=== PATIENT | male | born 1950 | race Caucasian/White ===

== ENCOUNTER 2018-02-23 07:16 | Day surgery (SDC) | payer BC ==
[2018-02-23] MEDS ORDERED: Lactated Ringers 1,000 ML IV SCH (07:30)
[2018-02-23] MEDS ORDERED: Propofol 200 MG/20 ML SDV IV ONE (09:15)
[2018-02-23] MEDS ORDERED: Midazolam 1 MG/ML 2 ML SDV IV ONE (09:15)
--- NOTE | 2018-02-23 09:45 | PCM.OPNOTE ---
- General Post-Op/Procedure Note Date of Surgery/Procedure: 02/23/18 Operative Procedure(s): c scope with bx Findings: diverticulosis descending colon polyp Pre Op Diagnosis: hx of polyp Post-Op Diagnosis: descending colon polyp. diverticulosis Anesthesia Technique: JERRICA Primary Surgeon: Aurelio Ramos Anesthesia Provider: Keke Hoffman Pathology: colon polyp Complications: None Condition: Good Free Text/Narrative:: see dictation
--- NOTE | 2018-02-23 10:23 | OR ---
DATE OF OPERATION: 02/23/2018 SURGEON: Aurelio Ramos MD PROCEDURES PERFORMED: Colonoscopy with cold forceps biopsy. PREOPERATIVE DIAGNOSIS: Personal history of colon polyps. POSTOPERATIVE DIAGNOSES: Descending colon polyp and diverticulosis of the descending and sigmoid colons. INDICATIONS FOR PROCEDURE: This is a 67-year-old white male who presents for a followup colonoscopy. He was offered and accepted same. DESCRIPTION OF OPERATION: After an excellent IV sedation was administered, digital rectal exam was performed. No marked abnormality was noted. Flexible colonoscope was inserted and advanced to the cecum without difficulty. The prep was excellent. The following findings were noted. Ascending colon, unremarkable. Transverse colon, unremarkable. Descending colon, scattered diverticula and a small polyp, biopsied with cold biopsy forceps and sent for permanent. Sigmoid, mild diverticulosis. Rectum and anus, unremarkable. Colon was deflated. Scope was removed. The patient tolerated the procedure well. Results by letter and that will determine colonoscopy followup. /[id number] CELIA/MELECIO
== END 2018-02-23 10:45 | disposition home or self-care (01) ==
LOC: FB.SDS 07:16
PROVIDERS: ATTEND Surgery
DX: Z12.11 Encounter for screening for malignant neoplasm of colon (principal); K63.5 Polyp of colon; K57.30 Diverticulosis of large intestine without perforation or abscess without bleeding; I10 Essential (primary) hypertension; E11.9 Type 2 diabetes mellitus without complications; E78.5 Hyperlipidemia, unspecified; G47.33 Obstructive sleep apnea (adult) (pediatric); Z79.84 Long term (current) use of oral hypoglycemic drugs; Z79.899 Other long term (current) drug therapy; Z98.890 Other specified postprocedural states; Z86.010 Personal history of colon polyps; Z87.891 Personal history of nicotine dependence
CPT/HCPCS: 45380; 82962; 88305; J2250; J2704; J7120